=== PATIENT | male | born 1960 | race Caucasian/White ===

== ENCOUNTER → 2023-10-04 06:29 | Day surgery (SDC) | payer BC, SELFPAY ==
[2023-10-04 07:41] LABS: Glucose - Point of Care 150 mg/dl (70-99)
== END ==
LOC: GI 06:29
PROVIDERS: ATTENDING PHYSICIAN Specialist; FAMILY PHYSICIAN Internal Medicine
DX: Z12.11 Encounter for screening for malignant neoplasm of colon (principal); Q43.8 Other specified congenital malformations of intestine; Z86.010 Personal history of colon polyps
CPT/HCPCS: G0105; 82962